=== PATIENT | female | born 1995 | race Caucasian/White ===

== ENCOUNTER 2021-10-17 11:59 | Emergency (ER) | payer OTHER ==
[~2021-10-17] VITALS: Ht 160 cm; Wt 63.5 kg
[2021-10-17] MEDS ORDERED: KETOROLAC TROMETHAMINE INJ 30 MG/ML VIAL ONE (14:08)
[2021-10-17] MEDS ORDERED: ONDANSETRON HCL/PF 4 MG/2 ML VIAL ONE (14:08)
[2021-10-17] MEDS ORDERED: IV NS 0.9% 1,000 ML BAG IV ONE (14:30)
[2021-10-17] MEDS ORDERED: ONDANSETRON HCL/PF 4 MG/2 ML VIAL IVP ONE (14:30)
[2021-10-17] MEDS ORDERED: KETOROLAC TROMETHAMINE INJ 30 MG/ML VIAL IV ONE (14:30)
--- NOTE | 2021-10-17 14:30 | NUR ---
IV LINE ESTABLISHED ON RAC #[id number], BLOOD DRAWN AND SENT TO LAB
--- NOTE | 2021-10-17 14:39 | NUR ---
URINE SAMPLE OBTAINED AND SENT TO LAB
[2021-10-17 14:49] LABS: BASOPHILS % (AUTO) 0.1 % (0.0-2.0); HEMATOCRIT 43 % (33-45); HEMOGLOBIN 14.5 g/dL (11.5-14.8); LYMPHOCYTES # (AUTO) 0.7 K/uL (0.8-4.8); MEAN CORPUSCULAR HGB CONC 34 g/dl (31.0-36.0); MEAN CORPUSCULAR VOLUME 88 fL (82-100); MONOCYTES # (AUTO) 0.4 K/uL (0.1-1.30); MONOCYTES % (AUTO) 2.6 % (2.0-12.0); NEUTROPHILS % (AUTO) 93.3 % (43.0-81.0); PLATELET COUNT (AUTO) 386 K/uL (150-450); RED BLOOD CELL COUNT(AUTO) 4.85 MIL/uL (4.0-5.2); WHITE BLOOD COUNT (AUTO) 17.2 K/uL (4.3-11.0)
[2021-10-17 15:11] LABS: BILIRUBIN,URINE SMALL (NEGATIVE); COLOR,URINE YELLOW (YELLOW); LEUKOCYTE ESTERASE ,URINE NEGATIVE (NEGATIVE); NITRITE, URINE NEGATIVE (NEGATIVE); PH,URINE 6.5 (5.0-8.0); PROTEIN,URINE TRACE mg/dl (NEGATIVE); UGLUCOSE NEGATIVE (NEGATIVE)
[2021-10-17 15:17] LABS: CREATININE 1.1 mg/dL (0.6-1.3); POTASSIUM 3.6 mmol/L (3.5-5.1)
[2021-10-17 15:22] LABS: ALBUMIN 4.7 g/dL (3.4-5.0); BILIRUBIN,DIRECT 0.4 mg/dL (0.0-0.2); BILIRUBIN,TOTAL 2.2 mg/dL (0.2-1.0); TOTAL PROTEIN, SERUM 8.3 g/dL (6.4-8.2)
[2021-10-17] MEDS: IV NS 0.9% 1,000 ML BAG IV ONE (15:33)
--- NOTE | 2021-10-17 15:44 | NUR ---
PT TAKEN TO RADIOLOGY FOR CT
--- NOTE | 2021-10-17 15:55 | NUR ---
PT RETURNED FROM RADIOLOGY
--- NOTE | 2021-10-17 16:05 | NUR ---
PT COMPLAINT OF BACK PAIN. DR SPICER MADE AWARE W/ ORDER FOR MORPHINE 2MG IV X1; ORDER WAS READ BACK AND VERIFIED.
[2021-10-17] MEDS ORDERED: MORPHINE SULFATE INJ 2 MG/ML DISP.SYRIN ONE (16:10)
[2021-10-17] MEDS ORDERED: TAMSULOSIN 0.4 MG CAP.SR.24H ONE (16:13)
[2021-10-17 16:18] LABS: BACTERIA,URINE 1+ /HPF (None Seen); RBC,URINE 51-80 /HPF (0-2); WBC,URINE 0-2 /HPF (0-3)
[2021-10-17] MEDS ORDERED: TAMSULOSIN 0.4 MG CAP.SR.24H PO ONE (16:30)
[2021-10-17] MEDS ORDERED: MORPHINE SULFATE INJ 2 MG/ML DISP.SYRIN IV ONE (16:30)
[2021-10-17] MEDS ORDERED: HYDR-3972 PO (16:37)
[2021-10-17] MEDS ORDERED: IBUP-1957 PO (16:37)
[2021-10-17] MEDS ORDERED: TAMS-12 PO (16:37)
--- NOTE | 2021-10-17 17:14 | NUR ---
IV removed. Catheter intact and site benign. Pressure and 4x4 applied to site. No bleeding noted.
[2021-10-17 17:36] VITALS: BP 125/70
--- NOTE | 2021-10-17 17:36 | NUR ---
Patient discharged to home in stable condition. Written and verbal after care instructions given. Patient verbalizes understanding of instruction.
== END 2021-10-17 17:37 | disposition home or self-care (01) ==
LOC: ER 12:00
DX: N23 Unspecified renal colic (principal); N20.1 Calculus of ureter
CPT/HCPCS: 99284; 74176; 96374; 96361; 96375; 85025; 80048; 83690; 80076; 84703; 81001; 36415; J1885; J2405; J7030 ×2; J2270

== ENCOUNTER 2023-05-11 19:52 | Emergency (ER) | payer OTHER ==
[~2023-05-11] VITALS: Ht 160 cm; Wt 63.5 kg
[~2023-05-11 19:52] MED LIST: HYDR-3972 PO; IBUP-1957 PO; TAMS-12 PO
[2023-05-11 20:48] VITALS: TEMP 97.7
[2023-05-11 21:35] LABS: BASOPHILS % (AUTO) 0.1 % (0.0-2.0); EOSINOPHILS % (AUTO) 0.1 % (0.0-6.0); HEMATOCRIT 42 % (33-45); HEMOGLOBIN 13.2 g/dL (11.5-14.8); LYMPHOCYTES # (AUTO) 1.5 K/uL (0.8-4.8); LYMPHOCYTES % (AUTO) 9.2 % (20.0-44.0); MEAN CORPUSCULAR HEMOGLOBIN 25 PG (26.0-33.0); MEAN CORPUSCULAR HGB CONC 31 g/dl (31.0-36.0); MEAN CORPUSCULAR VOLUME 80 fL (82-100); MONOCYTES # (AUTO) 0.7 K/uL (0.1-1.30); MONOCYTES % (AUTO) 4.5 % (2.0-12.0); NEUTROPHILS # (AUTO) 13.9 K/uL (1.8-8.9); NEUTROPHILS % (AUTO) 86.1 % (43.0-81.0); PLATELET COUNT (AUTO) 391 K/uL (150-450); RED BLOOD CELL COUNT(AUTO) 5.24 MIL/uL (4.0-5.2); RED CELL DISTRIBUTION WIDTH 15.6 % (11.5-15.0); WHITE BLOOD COUNT (AUTO) 16.2 K/uL (4.3-11.0)
[2023-05-11 21:51] LABS: ALANINE AMINOTRANSFERASE 16 U/L (12-78); ALKALINE PHOSPHATASE 85 U/L (46-116); ASPARTATE AMINOTRANSFERASE 17 U/L (15-37); BILIRUBIN,TOTAL 2.1 mg/dL (0.2-1.0); CARBON DIOXIDE 22 mmol/L (21-32); CHLORIDE 101 mmol/L (98-107); CREATININE 0.7 mg/dL (0.6-1.3); GLUCOSE 115 mg/dL (74-106); POTASSIUM 3.4 mmol/L (3.5-5.1); SODIUM SERUM 136 mmol/L (136-145); TOTAL PROTEIN, SERUM 7.9 g/dL (6.4-8.2); UREA NITROGEN, BLOOD 18 mg/dL (7-18)
[2023-05-11 22:00] LABS: CALCIUM, SERUM 9.1 mg/dL (8.5-10.1)
[2023-05-11 22:16] LABS: BILIRUBIN,DIRECT 0.3 mg/dL (0.0-0.2)
[2023-05-11] MEDS ORDERED: ACETAMINOPHEN ES 500 MG TABLET ONE (22:16)
[2023-05-11] MEDS: ACETAMINOPHEN ES 500 MG TABLET PO ONE (22:51)
[2023-05-11 22:52] VITALS: BP 116/84; O2SAT 98
== END 2023-05-11 22:53 | disposition home or self-care (01) ==
LOC: ER 20:03
DX: S00.93XA Contusion of unspecified part of head, initial encounter (principal); R55 Syncope and collapse; W18.30XA Fall on same level, unspecified, initial encounter; Y93.89 Activity, other specified; Y92.89 Other specified places as the place of occurrence of the external cause; Y99.8 Other external cause status
CPT/HCPCS: 36415; 70450-TC; 72125-TC; 80048-TC; 80076-TC; 84484-TC; 85025-TC